=== PATIENT | male | born 1955 | race Caucasian/White ===

== ENCOUNTER 2018-02-12 13:33 | Emergency (ER) | payer BC, SELFPAY ==
--- NOTE | 2018-02-12 13:33 | ED.SEIZURE ---
HPI - Seizure <Kasandra Khalil PA-C - Last Filed: 02/12/18 22:34> General Chief Complaint: Seizure Stated Complaint: Seizure Time Seen by Provider: 02/12/18 13:41 Source: patient and EMS Mode of arrival: EMS Limitations: no limitations History of Present Illness HPI Narrative: This 63-year-old male states he was feeling fine all day. He went over to a friend's house to have some beer and try THC for the 1st time for his chronic neck and neuropathy pain. He states that he had just open his 2nd beer when his next memory was his friend tapping him on the knee trying to awaken him, and the EMS crew arriving. He states that his friend described him shaking, and he had urinary incontinence. He states after he was awakened he did not have any confusion other than not knowing what had happened. Paramedics describe seen some generalized shaking activity, state GCS was 15 on arrival and fast was normal. Patient states that he has not had any weakness, difficulty with speech or swallowing today. He denies any chest pain, palpitations, or dyspnea. He states that he has some ongoing pain and weakness on the left side due to his cervical spine stenosis for which she is awaiting surgery, but that is overall unchanged. He states that he has not had any recent illness, fever, cough or cold symptoms. He denies any abdominal pain or vomiting. He has no history of seizures. Paramedics note that his blood pressure was 96/53 with a heart rate of 85 and regular and route here so they started an IV. Related Data Home Medications Medication Instructions Recorded Confirmed atorvastatin [Lipitor] 80 mg PO DAILY 02/12/18 02/12/18 dapagliflozin-metformin [Xigduo XR] 1 tab PO DAILY 02/12/18 02/12/18 levothyroxine 50 mcg PO DAILY 02/12/18 02/12/18 losartan-hydrochlorothiazide 1 tab PO DAILY 02/12/18 02/12/18 metoprolol succinate 50 mg PO DAILY 02/12/18 02/12/18 sitagliptin [Januvia] 100 mg PO DAILY 02/12/18 02/12/18 Allergies Allergy/AdvReac Type Severity Reaction Status Date / Time breathing treatment AdvReac Unresponsiv Uncoded 02/12/18 14:12 e Review of Systems <Kasandra Khalil PA-C - Last Filed: 02/12/18 22:34> Review of Systems All systems reviewed & are unremarkable except as noted in HPI and below Exam <Kasandra Khalil PA-C - Last Filed: 02/12/18 22:34> Narrative Exam Narrative: GENERAL APPEARANCE: Patient sitting comfortably, in no distress. HEENT: PERRL, EOMI, normal TMs and oropharynx NECK: Supple, no TTP, no masses LUNGS: Clear to auscultation bilaterally. HEART: Rate and rhythm regular without murmur, normal S1 and S2, no S3 or S4. ABDOMEN: Soft, NT, ND, + BS x 4 quadrants NEUROLOGIC: Alert and oriented, normal speech, and coordination. CN III-XII grossly intact MUSCULOSKELETAL: Full Csp AROM without tenderness. Strength intact against resistance in UEs and LEs, able to maintain shoulder and hip flexion without drift throughout Initial Vital Signs Initial Vital Signs: Vital Signs Temperature 98.2 F 02/12/18 13:40 Pulse Rate 79 02/12/18 13:40 Respiratory Rate 18 02/12/18 13:40 Blood Pressure 123/81 H 02/12/18 13:40 Pulse Oximetry 97 02/12/18 13:40 <Prosper Garcia MD - Last Filed: 03/15/18 06:50> Initial Vital Signs Initial Vital Signs: Vital Signs Temperature 98.2 F 02/12/18 13:40 Pulse Rate 79 02/12/18 13:40 Respiratory Rate 18 02/12/18 13:40 Blood Pressure 123/81 H 02/12/18 13:40 Pulse Oximetry 97 02/12/18 13:40 Course <Kasandra Khalil PA-C - Last Filed: 02/12/18 22:34> Hospital Course: Reviewed findings with Dr. Pierre who agreed reasonable to d/c patient for outpatient f/u and neurology eval. Patient was agreeable and agrees not to drive. He did have a friend here with him today. Orders Ordered: Discontinued Medications Sodium Chloride (Normal Saline 0.9%) 1,000 mls @ 1,000 mls/hr IV BOLUS ONE Stop: 02/12/18 14:45 Last Infusion: 02/12/18 17:47 Dose: 0 mls/hr Admin: 02/12/18 14:19 Dose: 1,000 mls/hr Vital Signs - 8 hr 02/12/18 16:06 02/12/18 17:43 Pulse Rate 73 84 Respiratory Rate 16 16 Blood Pressure [Left Arm] 120/66 118/89 H Pulse Oximetry 97 100 <Prosper Garcia MD - Last Filed: 03/15/18 06:50> Orders Ordered: Discontinued Medications Sodium Chloride (Normal Saline 0.9%) 1,000 mls @ 1,000 mls/hr IV BOLUS ONE Stop: 02/12/18 14:45 Last Infusion: 02/12/18 17:47 Dose: 0 mls/hr Admin: 02/12/18 14:19 Dose: 1,000 mls/hr Vital Signs - 8 hr 02/12/18 16:06 02/12/18 17:43 Pulse Rate 73 84 Respiratory Rate 16 16 Blood Pressure [Left Arm] 120/66 118/89 H Pulse Oximetry 97 100 MDM - Seizure <Kasandra Khalil PA-C - Last Filed: 02/12/18 22:34> Lab Data Result diagrams: 02/12/18 13:30 02/12/18 13:30 Lab Results 02/12/18 02/12/18 02/12/18 Range/Units 13:30 13:30 13:30 WBC 11.4 H (4.5-11.0) X10^3/uL RBC 5.22 (4.5-5.9) X10^6/uL Hgb 16.5 (13.5-17.5) g/dL Hct 47.8 (41-53) % MCV 91.7 (80-100) fL MCH 31.6 (26-34) PG MCHC 34.5 (30-36) % RDW 14.4 (11.6-14.8) % Plt Count 181 (150-400) X10^3/uL Neut % (Auto) 62.9 (50-75) % Lymph % (Auto) 18.8 L (25-40) % [place] % (Auto) 15.8 H (3-14) % Eos % (Auto) 1.9 L (2-4) % Baso % (Auto) 0.6 (0-2) % Neut # (Auto) 7200 H (8592-4831) /uL PT 11.7 (10.1-12.7) SECONDS INR 1.1 (0.9-1.3) D-Dimer 313 H (<230) ng/mL Sodium 139 (137-145) mmol/L Potassium 3.7 (3.4-5.1) mmol/L Chloride 97 L (98-107) mmol/L Carbon Dioxide 28 (22-32) mmol/L BUN 16 (9-20) mg/dL Creatinine 0.90 (0.66-1.25) mg/dL Estimated GFR > 60.0 (>60) mL/min BUN/Creatinine Ratio 17.8 (6-22) Glucose 173 H (80-110) mg/dL Calcium 9.4 (8.4-10.2) mg/dL Magnesium 1.6 (1.6-2.3) mg/dL Total Bilirubin 1.0 (0.2-1.3) mg/dL AST 42 (17-59) IU/L ALT 54 (21-72) IU/L Alkaline Phosphatase 70 (38-126) U/L Total Creatine Kinase 119 (55-170) U/L CK-MB (CK-2) 1.99 (<2.37) ng/mL CK-MB (CK-2) Rel Index 1.7 (1.5-5.0) % Troponin I < 0.012 (0.01-0.034) ng/mL Total Protein 8.0 (6.3-8.2) g/dL Albumin 4.3 (3.5-5.0) g/dL Globulin 3.7 (1.7-4.1) g/dL Albumin/Globulin Ratio 1.2 (1.0-2.8) Prolactin (3.7-17.9) ng/mL Urine Color Urine Appearance Urine pH (4.5-8.0) Ur Specific [place] (1.000-1.035) Urine Protein (Negative) Urine Glucose (UA) (Normal) g/dL Urine Ketones (NEGATIVE) Urine Occult Blood (Negative) Urine Nitrate (Negative) Urine Bilirubin (NEGATIVE) Urine Urobilinogen (0.2) E.U./dL Ur Leukocyte Esterase (NEGATIVE) Urine RBC (0-5/HPF) Urine WBC (0-5/HPF) Urine Bacteria (None) Ur Culture Indicated? Micro UA Comment Urine Opiates Screen (Negative) Ur Oxycodone Screen (Negative) Urine Methadone Screen (Negative) Ur Barbiturates Screen (Negative) U Tricyclic Antidepress (Negative) Ur Phencyclidine Scrn (Negative) Ur Amphetamines Screen (Negative) U Methamphetamines Scrn (Negative) Ur MDMA Scrn (Ecstasy) (Negative) U Benzodiazepines Scrn (Negative) Urine Cocaine Screen (Negative) U Marijuana (THC) Screen (Negative) Ethyl Alcohol < 10 mg/dL 02/12/18 02/12/18 02/12/18 Range/Units 13:30 16:42 16:42 WBC (4.5-11.0) X10^3/uL RBC (4.5-5.9) X10^6/uL Hgb (13.5-17.5) g/dL Hct (41-53) % MCV (80-100) fL MCH (26-34) PG MCHC (30-36) % RDW (11.6-14.8) % Plt Count (150-400) X10^3/uL Neut % (Auto) (50-75) % Lymph % (Auto) (25-40) % [place] % (Auto) (3-14) % Eos % (Auto) (2-4) % Baso % (Auto) (0-2) % Neut # (Auto) (4242-4609) /uL PT (10.1-12.7) SECONDS INR (0.9-1.3) D-Dimer (<230) ng/mL Sodium (137-145) mmol/L Potassium (3.4-5.1) mmol/L Chloride (98-107) mmol/L Carbon Dioxide (22-32) mmol/L BUN (9-20) mg/dL Creatinine (0.66-1.25) mg/dL Estimated GFR (>60) mL/min BUN/Creatinine Ratio (6-22) Glucose (80-110) mg/dL Calcium (8.4-10.2) mg/dL Magnesium (1.6-2.3) mg/dL Total Bilirubin (0.2-1.3) mg/dL AST (17-59) IU/L ALT (21-72) IU/L Alkaline Phosphatase (38-126) U/L Total Creatine Kinase (55-170) U/L CK-MB (CK-2) (<2.37) ng/mL CK-MB (CK-2) Rel Index (1.5-5.0) % Troponin I (0.01-0.034) ng/mL Total Protein (6.3-8.2) g/dL Albumin (3.5-5.0) g/dL Globulin (1.7-4.1) g/dL Albumin/Globulin Ratio (1.0-2.8) Prolactin 88.7 H (3.7-17.9) ng/mL Urine Color Yellow Urine Appearance Clear Urine pH 5.0 (4.5-8.0) Ur Specific [place] 1.010 (1.000-1.035) Urine Protein Negative (Negative) Urine Glucose (UA) 2+ (Normal) g/dL Urine Ketones Negative (NEGATIVE) Urine Occult Blood Negative (Negative) Urine Nitrate Negative (Negative) Urine Bilirubin Negative (NEGATIVE) Urine Urobilinogen 0.2 (0.2) E.U./dL Ur Leukocyte Esterase Negative (NEGATIVE) Urine RBC 1-5/hpf (0-5/HPF) Urine WBC None seen (0-5/HPF) Urine Bacteria None seen (None) Ur Culture Indicated? Not Reportable Micro UA Comment Not Reportable Urine Opiates Screen Negative (Negative) Ur Oxycodone Screen Negative (Negative) Urine Methadone Screen Negative (Negative) Ur Barbiturates Screen Negative (Negative) U Tricyclic Antidepress Negative (Negative) Ur Phencyclidine Scrn Negative (Negative) Ur Amphetamines Screen Negative (Negative) U Methamphetamines Scrn Negative (Negative) Ur MDMA Scrn (Ecstasy) Negative (Negative) U Benzodiazepines Scrn Negative (Negative) Urine Cocaine Screen Negative (Negative) U Marijuana (THC) Screen Positive H (Negative) Ethyl Alcohol mg/dL Imaging Data Chest x-ray: Radiologist's impression: [address] [address] XRay Report Signed Patient: Jesse Jett MR#: [id number] : 1955 Acct:[id number] Age/Sex: 63 / M Date of Service: 02/12/18 Loc: ED Accession Number: [id number] Procedure: XR chest 1V Ordering Provider: Kasandra Khalil P.A-C PROCEDURE: XR CHEST 1V INDICATIONS: 63 year-old male with syncope. TECHNIQUE: One view of the chest was acquired. COMPARISON: None. FINDINGS: Surgical changes and devices: Patient is status post median sternotomy. Lungs and pleura: No pleural effusions or pneumothorax. Lungs are clear. Mediastinum: Mediastinal contours appear normal. Heart size is normal. There is aortic atherosclerosis. Bones and chest wall: No suspicious bony lesions. Overlying soft tissues appear unremarkable. IMPRESSION: No acute cardiopulmonary disease. Dictated by: Jose A Manriquez M.D. on 02/12/2018 at 14:04 Approved by: Jose A Manriquez M.D. on 02/12/2018 at 14:05 CT scan - head: Radiologist's impression: View Report History Print [address] [address] [address] Scan Report Signed Patient: Jesse Jett MR#: [id number] : 1955 Acct:[id number] Age/Sex: 63 / M Date of Service: 02/12/18 Loc: ED Accession Number: [id number] Procedure: CT head/brain wo con Ordering Provider: Kasandra Khalil P.A-C PROCEDURE: CT HEAD/BRAIN WO CON INDICATIONS: syncope/seizure TECHNIQUE: Noncontrast 4.5 mm thick angled axial sections acquired from the foramen magnum to the vertex, with coronal and sagittal reformats. For radiation dose reduction, the following was used: automated exposure control, adjustment of mA and/or kV according to patient size. COMPARISON: [facility], CR, XR CHEST 1V, 02/12/2018, 13:33. FINDINGS: Image quality: Excellent. CSF spaces: Basal cisterns are patent. No extra-axial fluid collections. Ventricles are mildly prominent. There is corresponding parenchymal volume loss. Brain: No midline shift. No intracranial masses or hemorrhage. [place]-white matter interface is normal. Areas of low-attenuation are seen within the periventricular and deep white matter of the supratentorial brain (right greater than left). Skull and face: Calvarium and visualized facial bones are intact, without suspicious lesions. Sinuses: Visualized minimal mucosal thickening is noted involving the left inferior maxillary sinus. Otherwise, the imaged paranasal sinuses and included mastoid air cells are clear. IMPRESSION: 1. No acute intracranial hemorrhage or ischemia. 2. Moderate parenchymal volume loss and chronic small vessel ischemic changes. Dictated by: Eugene Frost M.D. on 02/12/2018 at 13:10 Approved by: Eugene Frost M.D. on 02/12/2018 at 13:13 CT scan - chest: Radiologist's impression: [address] [address] [address] Scan Report Signed Patient: Jesse Jett MR#: [id number] : 1955 Acct:[id number] Age/Sex: 63 / M Date of Service: 02/12/18 Loc: ED Accession Number: [id number] Procedure: CT angio chest PE protocol Ordering Provider: Kasandra Khalil P.A-C PROCEDURE: CT ANGIO CHEST PE PROTOCOL INDICATIONS: syncope, elevated d dimer TECHNIQUE: After the administration of intravenous contrast, 2 mm thick sections acquired from the pulmonary apices to the posterior costophrenic angles. 3-dimensional maximum intensity projection (MIP) coronal and sagittal reformats were then acquired through the thorax. For radiation dose reduction, the following was used: automated exposure control, adjustment of mA and/or kV according to patient size. COMPARISON: [facility], CR, XR CHEST 1V, 02/12/2018, 13:33. FINDINGS: Image quality: Excellent. Pulmonary arteries: Pulmonary arteries are normal in size, and demonstrate no intraluminal filling defects to suggest central pulmonary embolism. Lungs and pleura: There is mild dependent atelectasis bilaterally. Within the left lower lobe, there is a small bony nodule measuring up to 4 mm on series 5 image 48. No pleural effusions or pneumothorax. Central and peripheral airways are patent. Mediastinum: Postsurgical changes are demonstrated in the mediastinum compatible with prior CABG. Heart size is normal, without pericardial effusion. No mediastinal or hilar adenopathy. Thoracic aorta is normal in caliber and enhancement. Esophagus is normal in caliber, with a small hiatal hernia. Bones and chest wall: No suspicious bony lesions. Ribs and thoracic spine appear intact throughout. Thyroid gland is heterogeneous in appearance with suggestion of a small right nodule. No axillary or supraclavicular adenopathy. Abdomen: Visualized upper abdominal solid organs appear normal in the early arterial phase of enhancement. IMPRESSION: 1. No evidence of pulmonary embolism. 2. Small 4 mm left lower lobe pulmonary nodule. If patient is at high risk for malignancy, a followup CT may be performed in 12 months to demonstrate stability. 3. Heterogeneous appearance of the thyroid. Further evaluation may be obtained with ultrasound if clinically indicated. Dictated by: Woodrow Castro M.D. on 02/12/2018 at 14:50 Approved by: Woodrow Castro M.D. on 02/12/2018 at 14:55 ECG Data Attestation: I personally reviewed and interpreted this ECG as follows: (NSR with rate 76, normal axis, single PVC) Prior ECG tracings: not available for review <Prosper Garcia MD - Last Filed: 03/15/18 06:50> Lab Data Lab Results 02/12/18 02/12/18 02/12/18 Range/Units 13:30 13:30 13:30 WBC 11.4 H (4.5-11.0) X10^3/uL RBC 5.22 (4.5-5.9) X10^6/uL Hgb 16.5 (13.5-17.5) g/dL Hct 47.8 (41-53) % MCV 91.7 (80-100) fL MCH 31.6 (26-34) PG MCHC 34.5 (30-36) % RDW 14.4 (11.6-14.8) % Plt Count 181 (150-400) X10^3/uL Neut % (Auto) 62.9 (50-75) % Lymph % (Auto) 18.8 L (25-40) % [place] % (Auto) 15.8 H (3-14) % Eos % (Auto) 1.9 L (2-4) % Baso % (Auto) 0.6 (0-2) % Neut # (Auto) 7200 H (8020-9728) /uL PT 11.7 (10.1-12.7) SECONDS INR 1.1 (0.9-1.3) D-Dimer 313 H (<230) ng/mL Sodium 139 (137-145) mmol/L Potassium 3.7 (3.4-5.1) mmol/L Chloride 97 L (98-107) mmol/L Carbon Dioxide 28 (22-32) mmol/L BUN 16 (9-20) mg/dL Creatinine 0.90 (0.66-1.25) mg/dL Estimated GFR > 60.0 (>60) mL/min BUN/Creatinine Ratio 17.8 (6-22) Glucose 173 H (80-110) mg/dL Calcium 9.4 (8.4-10.2) mg/dL Magnesium 1.6 (1.6-2.3) mg/dL Total Bilirubin 1.0 (0.2-1.3) mg/dL AST 42 (17-59) IU/L ALT 54 (21-72) IU/L Alkaline Phosphatase 70 (38-126) U/L Total Creatine Kinase 119 (55-170) U/L CK-MB (CK-2) 1.99 (<2.37) ng/mL CK-MB (CK-2) Rel Index 1.7 (1.5-5.0) % Troponin I < 0.012 (0.01-0.034) ng/mL Total Protein 8.0 (6.3-8.2) g/dL Albumin 4.3 (3.5-5.0) g/dL Globulin 3.7 (1.7-4.1) g/dL Albumin/Globulin Ratio 1.2 (1.0-2.8) Prolactin (3.7-17.9) ng/mL Urine Color Urine Appearance Urine pH (4.5-8.0) Ur Specific [place] (1.000-1.035) Urine Protein (Negative) Urine Glucose (UA) (Normal) g/dL Urine Ketones (NEGATIVE) Urine Occult Blood (Negative) Urine Nitrate (Negative) Urine Bilirubin (NEGATIVE) Urine Urobilinogen (0.2) E.U./dL Ur Leukocyte Esterase (NEGATIVE) Urine RBC (0-5/HPF) Urine WBC (0-5/HPF) Urine Bacteria (None) Ur Culture Indicated? Micro UA Comment Urine Opiates Screen (Negative) Ur Oxycodone Screen (Negative) Urine Methadone Screen (Negative) Ur Barbiturates Screen (Negative) U Tricyclic Antidepress (Negative) Ur Phencyclidine Scrn (Negative) Ur Amphetamines Screen (Negative) U Methamphetamines Scrn (Negative) Ur MDMA Scrn (Ecstasy) (Negative) U Benzodiazepines Scrn (Negative) Urine Cocaine Screen (Negative) U Marijuana (THC) Screen (Negative) Ethyl Alcohol < 10 mg/dL 06/04/18 06/04/18 06/04/18 Range/Units 13:30 16:42 16:42 WBC (4.5-11.0) X10^3/uL RBC (4.5-5.9) X10^6/uL Hgb (13.5-17.5) g/dL Hct (41-53) % MCV (80-100) fL MCH (26-34) PG MCHC (30-36) % RDW (11.6-14.8) % Plt Count (150-400) X10^3/uL Neut % (Auto) (50-75) % Lymph % (Auto) (25-40) % [place] % (Auto) (3-14) % Eos % (Auto) (2-4) % Baso % (Auto) (0-2) % Neut # (Auto) (0408-7914) /uL PT (10.1-12.7) SECONDS INR (0.9-1.3) D-Dimer (<230) ng/mL Sodium (137-145) mmol/L Potassium (3.4-5.1) mmol/L Chloride (98-107) mmol/L Carbon Dioxide (22-32) mmol/L BUN (9-20) mg/dL Creatinine (0.66-1.25) mg/dL Estimated GFR (>60) mL/min BUN/Creatinine Ratio (6-22) Glucose (80-110) mg/dL Calcium (8.4-10.2) mg/dL Magnesium (1.6-2.3) mg/dL Total Bilirubin (0.2-1.3) mg/dL AST (17-59) IU/L ALT (21-72) IU/L Alkaline Phosphatase (38-126) U/L Total Creatine Kinase (55-170) U/L CK-MB (CK-2) (<2.37) ng/mL CK-MB (CK-2) Rel Index (1.5-5.0) % Troponin I (0.01-0.034) ng/mL Total Protein (6.3-8.2) g/dL Albumin (3.5-5.0) g/dL Globulin (1.7-4.1) g/dL Albumin/Globulin Ratio (1.0-2.8) Prolactin 88.7 H (3.7-17.9) ng/mL Urine Color Yellow Urine Appearance Clear Urine pH 5.0 (4.5-8.0) Ur Specific [place] 1.010 (1.000-1.035) Urine Protein Negative (Negative) Urine Glucose (UA) 2+ (Normal) g/dL Urine Ketones Negative (NEGATIVE) Urine Occult Blood Negative (Negative) Urine Nitrate Negative (Negative) Urine Bilirubin Negative (NEGATIVE) Urine Urobilinogen 0.2 (0.2) E.U./dL Ur Leukocyte Esterase Negative (NEGATIVE) Urine RBC 1-5/hpf (0-5/HPF) Urine WBC None seen (0-5/HPF) Urine Bacteria None seen (None) Ur Culture Indicated? Not Reportable Micro UA Comment Not Reportable Urine Opiates Screen Negative (Negative) Ur Oxycodone Screen Negative (Negative) Urine Methadone Screen Negative (Negative) Ur Barbiturates Screen Negative (Negative) U Tricyclic Antidepress Negative (Negative) Ur Phencyclidine Scrn Negative (Negative) Ur Amphetamines Screen Negative (Negative) U Methamphetamines Scrn Negative (Negative) Ur MDMA Scrn (Ecstasy) Negative (Negative) U Benzodiazepines Scrn Negative (Negative) Urine Cocaine Screen Negative (Negative) U Marijuana (THC) Screen Positive H (Negative) Ethyl Alcohol mg/dL Discharge Plan Departure Patient Disposition: Home, Self-Care Clinical Impression: First time seizure Discharge Date/Time: 02/12/18 17:50 Interventions: ED Discharge Assessment Last Done: 02/12/18 17:49 Instructions: DI for Seizure Disorder -- Adult Activity Restrictions/Additional Instructions: It appears most likely today that you had a seizure. Your test did not find evidence of any other new problem such as a stroke or heart attack. There was not a significant amount of alcohol or other drugs in your system. You should see your PCP in the next few days for a follow-up and a referral to a neurologist to have further testing as we talked about. You should not drive until the neurologist says it is safe for you. You should return to the closest emergency room if you have any new symptoms or if any recurrent seizure activity Prescriptions: No Action atorvastatin [Lipitor] 80 mg Tablet 80 mg PO DAILY RF: 0 metoprolol succinate 50 mg Tablet Extended Release 24 Hr 50 mg PO DAILY RF: 0 levothyroxine 50 mcg Tablet 50 mcg PO DAILY RF: 0 losartan-hydrochlorothiazide 50-12.5 mg Tablet 1 tab PO DAILY RF: 0 sitagliptin [Januvia] 100 mg Tablet 100 mg PO DAILY RF: 0 dapagliflozin-metformin [Xigduo XR] 5-1,000 mg Tablet, Ir - Er, Biphasic 24hr 1 tab PO DAILY RF: 0 Referrals: Silverio Romano MD [Non-Staff] - <Prosper Garcia MD - Last Filed: 03/15/18 06:50> Cosign ED Attending Cosignature Attestation: The PA/DIRECTOR OF PRODUCT MANAGEMENT functioned independently for the care of this pt, I was available, but not asked to participate in care. I am unable to determine appropriateness of management without personally examining the pt.
[2018-02-12 13:40] VITALS: BP 123/81; PULSE 79; RESP 18; TEMP 36.8; O2SAT 97
--- NOTE | 2018-02-12 13:47 | DI.RAD.S_ITS ---
PROCEDURE: XR CHEST 1V INDICATIONS: 63 year-old male with syncope. TECHNIQUE: One view of the chest was acquired. COMPARISON: None. FINDINGS: Surgical changes and devices: Patient is status post median sternotomy. Lungs and pleura: No pleural effusions or pneumothorax. Lungs are clear. Mediastinum: Mediastinal contours appear normal. Heart size is normal. There is aortic atherosclerosis. Bones and chest wall: No suspicious bony lesions. Overlying soft tissues appear unremarkable. IMPRESSION: No acute cardiopulmonary disease. Dictated by: Jose A Manriquez M.D. on 02/12/2018 at 14:04 Approved by: Jose A Manriquez M.D. on 02/12/2018 at 14:05
--- NOTE | 2018-02-12 13:51 | DI.CT.S_ITS ---
PROCEDURE: CT HEAD/BRAIN WO CON INDICATIONS: syncope/seizure TECHNIQUE: Noncontrast 4.5 mm thick angled axial sections acquired from the foramen magnum to the vertex, with coronal and sagittal reformats. For radiation dose reduction, the following was used: automated exposure control, adjustment of mA and/or kV according to patient size. COMPARISON: [facility], CR, XR CHEST 1V, 02/12/2018, 13:33. FINDINGS: Image quality: Excellent. CSF spaces: Basal cisterns are patent. No extra-axial fluid collections. Ventricles are mildly prominent. There is corresponding parenchymal volume loss. Brain: No midline shift. No intracranial masses or hemorrhage. [place]-white matter interface is normal. Areas of low-attenuation are seen within the periventricular and deep white matter of the supratentorial brain (right greater than left). Skull and face: Calvarium and visualized facial bones are intact, without suspicious lesions. Sinuses: Visualized minimal mucosal thickening is noted involving the left inferior maxillary sinus. Otherwise, the imaged paranasal sinuses and included mastoid air cells are clear. IMPRESSION: 1. No acute intracranial hemorrhage or ischemia. 2. Moderate parenchymal volume loss and chronic small vessel ischemic changes. Dictated by: Eugene Frost M.D. on 02/12/2018 at 13:10 Approved by: Eugene Frost M.D. on 02/12/2018 at 13:13
--- NOTE | 2018-02-12 13:54 | ED_ITS ---
HPI - Seizure <Kasandra Khalil PA-C - Last Filed: 02/12/18 22:34> General Chief Complaint: Seizure Stated Complaint: Seizure Time Seen by Provider: 02/12/18 13:41 Source: patient and EMS Mode of arrival: EMS Limitations: no limitations History of Present Illness HPI Narrative: This 63-year-old male states he was feeling fine all day. He went over to a friend's house to have some beer and try THC for the 1st time for his chronic neck and neuropathy pain. He states that he had just open his 2nd beer when his next memory was his friend tapping him on the knee trying to awaken him, and the EMS crew arriving. He states that his friend described him shaking, and he had urinary incontinence. He states after he was awakened he did not have any confusion other than not knowing what had happened. Paramedics describe seen some generalized shaking activity, state GCS was 15 on arrival and fast was normal. Patient states that he has not had any weakness, difficulty with speech or swallowing today. He denies any chest pain, palpitations, or dyspnea. He states that he has some ongoing pain and weakness on the left side due to his cervical spine stenosis for which she is awaiting surgery, but that is overall unchanged. He states that he has not had any recent illness, fever, cough or cold symptoms. He denies any abdominal pain or vomiting. He has no history of seizures. Paramedics note that his blood pressure was 96/53 with a heart rate of 85 and regular and route here so they started an IV. Related Data Home Medications Medication Instructions Recorded Confirmed atorvastatin [Lipitor] 80 mg PO DAILY 02/12/18 02/12/18 dapagliflozin-metformin [Xigduo XR] 1 tab PO DAILY 02/12/18 02/12/18 levothyroxine 50 mcg PO DAILY 02/12/18 02/12/18 losartan-hydrochlorothiazide 1 tab PO DAILY 02/12/18 02/12/18 metoprolol succinate 50 mg PO DAILY 02/12/18 02/12/18 sitagliptin [Januvia] 100 mg PO DAILY 02/12/18 02/12/18 Allergies Allergy/AdvReac Type Severity Reaction Status Date / Time breathing treatment AdvReac Unresponsiv Uncoded 02/12/18 14:12 e Review of Systems <Kasandra Khalil PA-C - Last Filed: 02/12/18 22:34> Review of Systems All systems reviewed & are unremarkable except as noted in HPI and below Exam <Kasandra Khalil PA-C - Last Filed: 02/12/18 22:34> Narrative Exam Narrative: GENERAL APPEARANCE: Patient sitting comfortably, in no distress. HEENT: PERRL, EOMI, normal TMs and oropharynx NECK: Supple, no TTP, no masses LUNGS: Clear to auscultation bilaterally. HEART: Rate and rhythm regular without murmur, normal S1 and S2, no S3 or S4. ABDOMEN: Soft, NT, ND, + BS x 4 quadrants NEUROLOGIC: Alert and oriented, normal speech, and coordination. CN III-XII grossly intact MUSCULOSKELETAL: Full Csp AROM without tenderness. Strength intact against resistance in UEs and LEs, able to maintain shoulder and hip flexion without drift throughout Initial Vital Signs Initial Vital Signs: Vital Signs Temperature 98.2 F 02/12/18 13:40 Pulse Rate 79 02/12/18 13:40 Respiratory Rate 18 02/12/18 13:40 Blood Pressure 123/81 H 02/12/18 13:40 Pulse Oximetry 97 02/12/18 13:40 <Prosper Garcia MD - Last Filed: 03/15/18 06:50> Initial Vital Signs Initial Vital Signs: Vital Signs Temperature 98.2 F 02/12/18 13:40 Pulse Rate 79 02/12/18 13:40 Respiratory Rate 18 02/12/18 13:40 Blood Pressure 123/81 H 02/12/18 13:40 Pulse Oximetry 97 02/12/18 13:40 Course <Kasandra Khalil PA-C - Last Filed: 02/12/18 22:34> Hospital Course: Reviewed findings with Dr. Pierre who agreed reasonable to d/c patient for outpatient f/u and neurology eval. Patient was agreeable and agrees not to drive. He did have a friend here with him today. Orders Ordered: Discontinued Medications Sodium Chloride (Normal Saline 0.9%) 1,000 mls @ 1,000 mls/hr IV BOLUS ONE Stop: 02/12/18 14:45 Last Infusion: 02/12/18 17:47 Dose: 0 mls/hr Admin: 02/12/18 14:19 Dose: 1,000 mls/hr Vital Signs - 8 hr 02/12/18 16:06 02/12/18 17:43 Pulse Rate 73 84 Respiratory Rate 16 16 Blood Pressure [Left Arm] 120/66 118/89 H Pulse Oximetry 97 100 <Prosper Garcia MD - Last Filed: 03/15/18 06:50> Orders Ordered: Discontinued Medications Sodium Chloride (Normal Saline 0.9%) 1,000 mls @ 1,000 mls/hr IV BOLUS ONE Stop: 02/12/18 14:45 Last Infusion: 02/12/18 17:47 Dose: 0 mls/hr Admin: 02/12/18 14:19 Dose: 1,000 mls/hr Vital Signs - 8 hr 02/12/18 16:06 02/12/18 17:43 Pulse Rate 73 84 Respiratory Rate 16 16 Blood Pressure [Left Arm] 120/66 118/89 H Pulse Oximetry 97 100 MDM - Seizure <Kasandra Khalil PA-C - Last Filed: 02/12/18 22:34> Lab Data Result diagrams: 02/12/18 13:30 02/12/18 13:30 Lab Results 02/12/18 02/12/18 02/12/18 Range/Units 13:30 13:30 13:30 WBC 11.4 H (4.5-11.0) X10^3/uL RBC 5.22 (4.5-5.9) X10^6/uL Hgb 16.5 (13.5-17.5) g/dL Hct 47.8 (41-53) % MCV 91.7 (80-100) fL MCH 31.6 (26-34) PG MCHC 34.5 (30-36) % RDW 14.4 (11.6-14.8) % Plt Count 181 (150-400) X10^3/uL Neut % (Auto) 62.9 (50-75) % Lymph % (Auto) 18.8 L (25-40) % [place] % (Auto) 15.8 H (3-14) % Eos % (Auto) 1.9 L (2-4) % Baso % (Auto) 0.6 (0-2) % Neut # (Auto) 7200 H (8900-4912) /uL PT 11.7 (10.1-12.7) SECONDS INR 1.1 (0.9-1.3) D-Dimer 313 H (<230) ng/mL Sodium 139 (137-145) mmol/L Potassium 3.7 (3.4-5.1) mmol/L Chloride 97 L (98-107) mmol/L Carbon Dioxide 28 (22-32) mmol/L BUN 16 (9-20) mg/dL Creatinine 0.90 (0.66-1.25) mg/dL Estimated GFR > 60.0 (>60) mL/min BUN/Creatinine Ratio 17.8 (6-22) Glucose 173 H (80-110) mg/dL Calcium 9.4 (8.4-10.2) mg/dL Magnesium 1.6 (1.6-2.3) mg/dL Total Bilirubin 1.0 (0.2-1.3) mg/dL AST 42 (17-59) IU/L ALT 54 (21-72) IU/L Alkaline Phosphatase 70 (38-126) U/L Total Creatine Kinase 119 (55-170) U/L CK-MB (CK-2) 1.99 (<2.37) ng/mL CK-MB (CK-2) Rel Index 1.7 (1.5-5.0) % Troponin I < 0.012 (0.01-0.034) ng/mL Total Protein 8.0 (6.3-8.2) g/dL Albumin 4.3 (3.5-5.0) g/dL Globulin 3.7 (1.7-4.1) g/dL Albumin/Globulin Ratio 1.2 (1.0-2.8) Prolactin (3.7-17.9) ng/mL Urine Color Urine Appearance Urine pH (4.5-8.0) Ur Specific [place] (1.000-1.035) Urine Protein (Negative) Urine Glucose (UA) (Normal) g/dL Urine Ketones (NEGATIVE) Urine Occult Blood (Negative) Urine Nitrate (Negative) Urine Bilirubin (NEGATIVE) Urine Urobilinogen (0.2) E.U./dL Ur Leukocyte Esterase (NEGATIVE) Urine RBC (0-5/HPF) Urine WBC (0-5/HPF) Urine Bacteria (None) Ur Culture Indicated? Micro UA Comment Urine Opiates Screen (Negative) Ur Oxycodone Screen (Negative) Urine Methadone Screen (Negative) Ur Barbiturates Screen (Negative) U Tricyclic Antidepress (Negative) Ur Phencyclidine Scrn (Negative) Ur Amphetamines Screen (Negative) U Methamphetamines Scrn (Negative) Ur MDMA Scrn (Ecstasy) (Negative) U Benzodiazepines Scrn (Negative) Urine Cocaine Screen (Negative) U Marijuana (THC) Screen (Negative) Ethyl Alcohol < 10 mg/dL 02/12/18 02/12/18 02/12/18 Range/Units 13:30 16:42 16:42 WBC (4.5-11.0) X10^3/uL RBC (4.5-5.9) X10^6/uL Hgb (13.5-17.5) g/dL Hct (41-53) % MCV (80-100) fL MCH (26-34) PG MCHC (30-36) % RDW (11.6-14.8) % Plt Count (150-400) X10^3/uL Neut % (Auto) (50-75) % Lymph % (Auto) (25-40) % [place] % (Auto) (3-14) % Eos % (Auto) (2-4) % Baso % (Auto) (0-2) % Neut # (Auto) (9107-4009) /uL PT (10.1-12.7) SECONDS INR (0.9-1.3) D-Dimer (<230) ng/mL Sodium (137-145) mmol/L Potassium (3.4-5.1) mmol/L Chloride (98-107) mmol/L Carbon Dioxide (22-32) mmol/L BUN (9-20) mg/dL Creatinine (0.66-1.25) mg/dL Estimated GFR (>60) mL/min BUN/Creatinine Ratio (6-22) Glucose (80-110) mg/dL Calcium (8.4-10.2) mg/dL Magnesium (1.6-2.3) mg/dL Total Bilirubin (0.2-1.3) mg/dL AST (17-59) IU/L ALT (21-72) IU/L Alkaline Phosphatase (38-126) U/L Total Creatine Kinase (55-170) U/L CK-MB (CK-2) (<2.37) ng/mL CK-MB (CK-2) Rel Index (1.5-5.0) % Troponin I (0.01-0.034) ng/mL Total Protein (6.3-8.2) g/dL Albumin (3.5-5.0) g/dL Globulin (1.7-4.1) g/dL Albumin/Globulin Ratio (1.0-2.8) Prolactin 88.7 H (3.7-17.9) ng/mL Urine Color Yellow Urine Appearance Clear Urine pH 5.0 (4.5-8.0) Ur Specific [place] 1.010 (1.000-1.035) Urine Protein Negative (Negative) Urine Glucose (UA) 2+ (Normal) g/dL Urine Ketones Negative (NEGATIVE) Urine Occult Blood Negative (Negative) Urine Nitrate Negative (Negative) Urine Bilirubin Negative (NEGATIVE) Urine Urobilinogen 0.2 (0.2) E.U./dL Ur Leukocyte Esterase Negative (NEGATIVE) Urine RBC 1-5/hpf (0-5/HPF) Urine WBC None seen (0-5/HPF) Urine Bacteria None seen (None) Ur Culture Indicated? Not Reportable Micro UA Comment Not Reportable Urine Opiates Screen Negative (Negative) Ur Oxycodone Screen Negative (Negative) Urine Methadone Screen Negative (Negative) Ur Barbiturates Screen Negative (Negative) U Tricyclic Antidepress Negative (Negative) Ur Phencyclidine Scrn Negative (Negative) Ur Amphetamines Screen Negative (Negative) U Methamphetamines Scrn Negative (Negative) Ur MDMA Scrn (Ecstasy) Negative (Negative) U Benzodiazepines Scrn Negative (Negative) Urine Cocaine Screen Negative (Negative) U Marijuana (THC) Screen Positive H (Negative) Ethyl Alcohol mg/dL Imaging Data Chest x-ray: Radiologist's impression: [address] [address] XRay Report Signed Patient: Jesse Jett MR#: [id number] : 1955 Acct:[id number] Age/Sex: 63 / M Date of Service: 02/12/18 Loc: ED Accession Number: [id number] Procedure: XR chest 1V Ordering Provider: Kasandra Khalil P.A-C PROCEDURE: XR CHEST 1V INDICATIONS: 63 year-old male with syncope. TECHNIQUE: One view of the chest was acquired. COMPARISON: None. FINDINGS: Surgical changes and devices: Patient is status post median sternotomy. Lungs and pleura: No pleural effusions or pneumothorax. Lungs are clear. Mediastinum: Mediastinal contours appear normal. Heart size is normal. There is aortic atherosclerosis. Bones and chest wall: No suspicious bony lesions. Overlying soft tissues appear unremarkable. IMPRESSION: No acute cardiopulmonary disease. Dictated by: Jose A Manriquez M.D. on 02/12/2018 at 14:04 Approved by: Jose A Manriquez M.D. on 02/12/2018 at 14:05 CT scan - head: Radiologist's impression: View Report History Print [address] [address] [address] Scan Report Signed Patient: Jesse Jett MR#: [id number] : 1955 Acct:[id number] Age/Sex: 63 / M Date of Service: 02/12/18 Loc: ED Accession Number: [id number] Procedure: CT head/brain wo con Ordering Provider: Kasandra Khalil P.A-C PROCEDURE: CT HEAD/BRAIN WO CON INDICATIONS: syncope/seizure TECHNIQUE: Noncontrast 4.5 mm thick angled axial sections acquired from the foramen magnum to the vertex, with coronal and sagittal reformats. For radiation dose reduction, the following was used: automated exposure control, adjustment of mA and/or kV according to patient size. COMPARISON: [facility], CR, XR CHEST 1V, 02/12/2018, 13:33. FINDINGS: Image quality: Excellent. CSF spaces: Basal cisterns are patent. No extra-axial fluid collections. Ventricles are mildly prominent. There is corresponding parenchymal volume loss. Brain: No midline shift. No intracranial masses or hemorrhage. Nickerson-white matter interface is normal. Areas of low-attenuation are seen within the periventricular and deep white matter of the supratentorial brain (right greater than left). Skull and face: Calvarium and visualized facial bones are intact, without suspicious lesions. Sinuses: Visualized minimal mucosal thickening is noted involving the left inferior maxillary sinus. Otherwise, the imaged paranasal sinuses and included mastoid air cells are clear. IMPRESSION: 1. No acute intracranial hemorrhage or ischemia. 2. Moderate parenchymal volume loss and chronic small vessel ischemic changes. Dictated by: Eugene Frost M.D. on 02/12/2018 at 13:10 Approved by: Eugene Frost M.D. on 02/12/2018 at 13:13 CT scan - chest: Radiologist's impression: [address] [address] [address] Scan Report Signed Patient: Jesse Jett MR#: [id number] : 1955 Acct:[id number] Age/Sex: 63 / M Date of Service: 02/12/18 Loc: ED Accession Number: [id number] Procedure: CT angio chest PE protocol Ordering Provider: Kasandra Khalil P.A-C PROCEDURE: CT ANGIO CHEST PE PROTOCOL INDICATIONS: syncope, elevated d dimer TECHNIQUE: After the administration of intravenous contrast, 2 mm thick sections acquired from the pulmonary apices to the posterior costophrenic angles. 3-dimensional maximum intensity projection (MIP) coronal and sagittal reformats were then acquired through the thorax. For radiation dose reduction, the following was used: automated exposure control, adjustment of mA and/or kV according to patient size. COMPARISON: [facility], CR, XR CHEST 1V, 02/12/2018, 13:33. FINDINGS: Image quality: Excellent. Pulmonary arteries: Pulmonary arteries are normal in size, and demonstrate no intraluminal filling defects to suggest central pulmonary embolism. Lungs and pleura: There is mild dependent atelectasis bilaterally. Within the left lower lobe, there is a small bony nodule measuring up to 4 mm on series 5 image 48. No pleural effusions or pneumothorax. Central and peripheral airways are patent. Mediastinum: Postsurgical changes are demonstrated in the mediastinum compatible with prior CABG. Heart size is normal, without pericardial effusion. No mediastinal or hilar adenopathy. Thoracic aorta is normal in caliber and enhancement. Esophagus is normal in caliber, with a small hiatal hernia. Bones and chest wall: No suspicious bony lesions. Ribs and thoracic spine appear intact throughout. Thyroid gland is heterogeneous in appearance with suggestion of a small right nodule. No axillary or supraclavicular adenopathy. Abdomen: Visualized upper abdominal solid organs appear normal in the early arterial phase of enhancement. IMPRESSION: 1. No evidence of pulmonary embolism. 2. Small 4 mm left lower lobe pulmonary nodule. If patient is at high risk for malignancy, a followup CT may be performed in 12 months to demonstrate stability. 3. Heterogeneous appearance of the thyroid. Further evaluation may be obtained with ultrasound if clinically indicated. Dictated by: Woodrow Castro M.D. on 02/12/2018 at 14:50 Approved by: Woodrow Castro M.D. on 02/12/2018 at 14:55 ECG Data Attestation: I personally reviewed and interpreted this ECG as follows: (NSR with rate 76, normal axis, single PVC) Prior ECG tracings: not available for review <Prosper Garcia MD - Last Filed: 03/15/18 06:50> Lab Data Lab Results 02/12/18 02/12/18 02/12/18 Range/Units 13:30 13:30 13:30 WBC 11.4 H (4.5-11.0) X10^3/uL RBC 5.22 (4.5-5.9) X10^6/uL Hgb 16.5 (13.5-17.5) g/dL Hct 47.8 (41-53) % MCV 91.7 (80-100) fL MCH 31.6 (26-34) PG MCHC 34.5 (30-36) % RDW 14.4 (11.6-14.8) % Plt Count 181 (150-400) X10^3/uL Neut % (Auto) 62.9 (50-75) % Lymph % (Auto) 18.8 L (25-40) % [place] % (Auto) 15.8 H (3-14) % Eos % (Auto) 1.9 L (2-4) % Baso % (Auto) 0.6 (0-2) % Neut # (Auto) 7200 H (8850-7740) /uL PT 11.7 (10.1-12.7) SECONDS INR 1.1 (0.9-1.3) D-Dimer 313 H (<230) ng/mL Sodium 139 (137-145) mmol/L Potassium 3.7 (3.4-5.1) mmol/L Chloride 97 L (98-107) mmol/L Carbon Dioxide 28 (22-32) mmol/L BUN 16 (9-20) mg/dL Creatinine 0.90 (0.66-1.25) mg/dL Estimated GFR > 60.0 (>60) mL/min BUN/Creatinine Ratio 17.8 (6-22) Glucose 173 H (80-110) mg/dL Calcium 9.4 (8.4-10.2) mg/dL Magnesium 1.6 (1.6-2.3) mg/dL Total Bilirubin 1.0 (0.2-1.3) mg/dL AST 42 (17-59) IU/L ALT 54 (21-72) IU/L Alkaline Phosphatase 70 (38-126) U/L Total Creatine Kinase 119 (55-170) U/L CK-MB (CK-2) 1.99 (<2.37) ng/mL CK-MB (CK-2) Rel Index 1.7 (1.5-5.0) % Troponin I < 0.012 (0.01-0.034) ng/mL Total Protein 8.0 (6.3-8.2) g/dL Albumin 4.3 (3.5-5.0) g/dL Globulin 3.7 (1.7-4.1) g/dL Albumin/Globulin Ratio 1.2 (1.0-2.8) Prolactin (3.7-17.9) ng/mL Urine Color Urine Appearance Urine pH (4.5-8.0) Ur Specific [place] (1.000-1.035) Urine Protein (Negative) Urine Glucose (UA) (Normal) g/dL Urine Ketones (NEGATIVE) Urine Occult Blood (Negative) Urine Nitrate (Negative) Urine Bilirubin (NEGATIVE) Urine Urobilinogen (0.2) E.U./dL Ur Leukocyte Esterase (NEGATIVE) Urine RBC (0-5/HPF) Urine WBC (0-5/HPF) Urine Bacteria (None) Ur Culture Indicated? Micro UA Comment Urine Opiates Screen (Negative) Ur Oxycodone Screen (Negative) Urine Methadone Screen (Negative) Ur Barbiturates Screen (Negative) U Tricyclic Antidepress (Negative) Ur Phencyclidine Scrn (Negative) Ur Amphetamines Screen (Negative) U Methamphetamines Scrn (Negative) Ur MDMA Scrn (Ecstasy) (Negative) U Benzodiazepines Scrn (Negative) Urine Cocaine Screen (Negative) U Marijuana (THC) Screen (Negative) Ethyl Alcohol < 10 mg/dL 06/04/18 06/04/18 06/04/18 Range/Units 13:30 16:42 16:42 WBC (4.5-11.0) X10^3/uL RBC (4.5-5.9) X10^6/uL Hgb (13.5-17.5) g/dL Hct (41-53) % MCV (80-100) fL MCH (26-34) PG MCHC (30-36) % RDW (11.6-14.8) % Plt Count (150-400) X10^3/uL Neut % (Auto) (50-75) % Lymph % (Auto) (25-40) % [place] % (Auto) (3-14) % Eos % (Auto) (2-4) % Baso % (Auto) (0-2) % Neut # (Auto) (5742-2403) /uL PT (10.1-12.7) SECONDS INR (0.9-1.3) D-Dimer (<230) ng/mL Sodium (137-145) mmol/L Potassium (3.4-5.1) mmol/L Chloride (98-107) mmol/L Carbon Dioxide (22-32) mmol/L BUN (9-20) mg/dL Creatinine (0.66-1.25) mg/dL Estimated GFR (>60) mL/min BUN/Creatinine Ratio (6-22) Glucose (80-110) mg/dL Calcium (8.4-10.2) mg/dL Magnesium (1.6-2.3) mg/dL Total Bilirubin (0.2-1.3) mg/dL AST (17-59) IU/L ALT (21-72) IU/L Alkaline Phosphatase (38-126) U/L Total Creatine Kinase (55-170) U/L CK-MB (CK-2) (<2.37) ng/mL CK-MB (CK-2) Rel Index (1.5-5.0) % Troponin I (0.01-0.034) ng/mL Total Protein (6.3-8.2) g/dL Albumin (3.5-5.0) g/dL Globulin (1.7-4.1) g/dL Albumin/Globulin Ratio (1.0-2.8) Prolactin 88.7 H (3.7-17.9) ng/mL Urine Color Yellow Urine Appearance Clear Urine pH 5.0 (4.5-8.0) Ur Specific [place] 1.010 (1.000-1.035) Urine Protein Negative (Negative) Urine Glucose (UA) 2+ (Normal) g/dL Urine Ketones Negative (NEGATIVE) Urine Occult Blood Negative (Negative) Urine Nitrate Negative (Negative) Urine Bilirubin Negative (NEGATIVE) Urine Urobilinogen 0.2 (0.2) E.U./dL Ur Leukocyte Esterase Negative (NEGATIVE) Urine RBC 1-5/hpf (0-5/HPF) Urine WBC None seen (0-5/HPF) Urine Bacteria None seen (None) Ur Culture Indicated? Not Reportable Micro UA Comment Not Reportable Urine Opiates Screen Negative (Negative) Ur Oxycodone Screen Negative (Negative) Urine Methadone Screen Negative (Negative) Ur Barbiturates Screen Negative (Negative) U Tricyclic Antidepress Negative (Negative) Ur Phencyclidine Scrn Negative (Negative) Ur Amphetamines Screen Negative (Negative) U Methamphetamines Scrn Negative (Negative) Ur MDMA Scrn (Ecstasy) Negative (Negative) U Benzodiazepines Scrn Negative (Negative) Urine Cocaine Screen Negative (Negative) U Marijuana (THC) Screen Positive H (Negative) Ethyl Alcohol mg/dL Discharge Plan Departure Patient Disposition: Home, Self-Care Clinical Impression: First time seizure Discharge Date/Time: 02/12/18 17:50 Interventions: ED Discharge Assessment Last Done: 02/12/18 17:49 Instructions: DI for Seizure Disorder -- Adult Activity Restrictions/Additional Instructions: It appears most likely today that you had a seizure. Your test did not find evidence of any other new problem such as a stroke or heart attack. There was not a significant amount of alcohol or other drugs in your system. You should see your PCP in the next few days for a follow-up and a referral to a neurologist to have further testing as we talked about. You should not drive until the neurologist says it is safe for you. You should return to the closest emergency room if you have any new symptoms or if any recurrent seizure activity Prescriptions: No Action atorvastatin [Lipitor] 80 mg Tablet 80 mg PO DAILY RF: 0 metoprolol succinate 50 mg Tablet Extended Release 24 Hr 50 mg PO DAILY RF: 0 levothyroxine 50 mcg Tablet 50 mcg PO DAILY RF: 0 losartan-hydrochlorothiazide 50-12.5 mg Tablet 1 tab PO DAILY RF: 0 sitagliptin [Januvia] 100 mg Tablet 100 mg PO DAILY RF: 0 dapagliflozin-metformin [Xigduo XR] 5-1,000 mg Tablet, Ir - Er, Biphasic 24hr 1 tab PO DAILY RF: 0 Referrals: Silverio Romano MD [Non-Staff] - <Prosper Garcia MD - Last Filed: 03/15/18 06:50> Cosign ED Attending Cosignature Attestation: The PA/CASE WORK AIDE functioned independently for the care of this pt, I was available, but not asked to participate in care. I am unable to determine appropriateness of management without personally examining the pt.
[2018-02-12 14:00] LABS: INR 1.1 (0.9-1.3); Prothrombin Time 11.7 SECONDS (10.1-12.7)
[2018-02-12 14:01] LABS: Add Manual Diff / Slide Review NO; Basophils Percent Auto 0.6 % (0-2); Eosinophils Percent Auto 1.9 % (2-4); Hematocrit 47.8 % (41-53); Hemoglobin 16.5 g/dL (13.5-17.5); Lymphocytes Percent Auto 18.8 % (25-40); Mean Corpuscular HGB Conc 34.5 % (30-36); Mean Corpuscular Hemoglobin 31.6 PG (26-34); Mean Corpuscular Volume 91.7 fL (80-100); Monocytes Percent Auto 15.8 % (3-14); Neutrophils Absolute Auto 7200 /uL (3000-5900); Neutrophils Percent Auto 62.9 % (50-75); Platelet Count 181 X10^3/uL (150-400); Red Blood Cell Count 5.22 X10^6/uL (4.5-5.9); Red Cell Distribution Width 14.4 % (11.6-14.8); White Blood Cell Count 11.4 X10^3/uL (4.5-11.0)
[2018-02-12 14:03] LABS: D Dimer 313 ng/mL (<230)
[2018-02-12 14:08] LABS: Alanine Aminotransferase 54 IU/L (21-72); Albumin 4.3 g/dL (3.5-5.0); Albumin Globulin Ratio 1.2 (1.0-2.8); Alkaline Phosphatase 70 U/L (38-126); Aspartate Aminotransferase 42 IU/L (17-59); BUN Creatinine Ratio 17.8 (6-22); Blood Urea Nitrogen 16 mg/dL (9-20); Calcium 9.4 mg/dL (8.4-10.2); Carbon Dioxide 28 mmol/L (22-32); Chloride 97 mmol/L (98-107); Creatine Kinase 119 U/L (55-170); Estimated Glomerular Filt Rate > 60.0 mL/min (>60); Ethanol (ETOH) < 10 mg/dL; Globulin 3.7 g/dL (1.7-4.1); Glucose 173 mg/dL (80-110); HEMOLYSIS 29 (0-50); Magnesium 1.6 mg/dL (1.6-2.3); Potassium 3.7 mmol/L (3.4-5.1); Sodium 139 mmol/L (137-145)
--- NOTE | 2018-02-12 14:08 | PC.NURSE ---
witnessed shaking with +LOC, pt was relaxed in a chair drinking beer, smoking marijuana, denies fall/injury/cp/soa/nausea/dizziness/recent illness or other sx, alert/oriented immediately following event, neuro exam unremarkable, placed in high vis room with sz precautions, denies sz history
[2018-02-12 14:17] VITALS: BP 115/72; PULSE 79; RESP 16; O2SAT 99
[2018-02-12] MEDS: SODIUM CHLORIDE 0.9% 1,000 ML 1000 ML IV (14:19)
[2018-02-12 14:22] LABS: CKMB % Relative Index 1.7 % (1.5-5.0); Creatine Kinase MB 1.99 ng/mL (<2.37)
--- NOTE | 2018-02-12 14:22 | DI.CT.S_ITS ---
PROCEDURE: CT ANGIO CHEST PE PROTOCOL INDICATIONS: syncope, elevated d dimer TECHNIQUE: After the administration of intravenous contrast, 2 mm thick sections acquired from the pulmonary apices to the posterior costophrenic angles. 3-dimensional maximum intensity projection (MIP) coronal and sagittal reformats were then acquired through the thorax. For radiation dose reduction, the following was used: automated exposure control, adjustment of mA and/or kV according to patient size. COMPARISON: [facility], CR, XR CHEST 1V, 02/12/2018, 13:33. FINDINGS: Image quality: Excellent. Pulmonary arteries: Pulmonary arteries are normal in size, and demonstrate no intraluminal filling defects to suggest central pulmonary embolism. Lungs and pleura: There is mild dependent atelectasis bilaterally. Within the left lower lobe, there is a small bony nodule measuring up to 4 mm on series 5 image 48. No pleural effusions or pneumothorax. Central and peripheral airways are patent. Mediastinum: Postsurgical changes are demonstrated in the mediastinum compatible with prior CABG. Heart size is normal, without pericardial effusion. No mediastinal or hilar adenopathy. Thoracic aorta is normal in caliber and enhancement. Esophagus is normal in caliber, with a small hiatal hernia. Bones and chest wall: No suspicious bony lesions. Ribs and thoracic spine appear intact throughout. Thyroid gland is heterogeneous in appearance with suggestion of a small right nodule. No axillary or supraclavicular adenopathy. Abdomen: Visualized upper abdominal solid organs appear normal in the early arterial phase of enhancement. IMPRESSION: 1. No evidence of pulmonary embolism. 2. Small 4 mm left lower lobe pulmonary nodule. If patient is at high risk for malignancy, a followup CT may be performed in 12 months to demonstrate stability. 3. Heterogeneous appearance of the thyroid. Further evaluation may be obtained with ultrasound if clinically indicated. Dictated by: Woodrow Castro M.D. on 02/12/2018 at 14:50 Approved by: Woodrow Castro M.D. on 02/12/2018 at 14:55
[2018-02-12 14:23] LABS: Troponin I < 0.012 ng/mL (0.01-0.034)
[2018-02-12 16:06] VITALS: BP 120/66; PULSE 73; RESP 16; O2SAT 97
[2018-02-12 16:23] LABS: Prolactin 88.7 ng/mL (3.7-17.9)
[2018-02-12 16:58] LABS: Bacteria Urine None Seen; WBC Urine None Seen (0-5/HPF)
[2018-02-12 17:14] LABS: Urine Amphetamines Negative (Negative); Urine Barbiturates Negative (Negative); Urine Benzodiazepines Negative (Negative); Urine Cocaine Negative (Negative); Urine MDMA Negative (Negative); Urine Methadone Negative (Negative); Urine Methamphetamines Negative (Negative); Urine Morphine/Opi cutoff 2000 Negative (Negative); Urine Oxycodone Negative (Negative); Urine Phencyclidine Negative (Negative); Urine Tetrahydrocannabinol Positive (Negative); Urine Tricyclic Antidepressant Negative (Negative)
[2018-02-12 17:21] LABS: Appearance Urine UA CLEAR; Bilirubin Urine UA NEGATIVE (NEGATIVE); Color Urine UA YELLOW; Glucose Urine UA 2+ g/dL (Normal); Ketones Urine UA NEGATIVE (NEGATIVE); Leukocyte Esterase Urine UA NEGATIVE (NEGATIVE); Nitrite Urine UA Negative (Negative); Occult Blood Urine UA NEGATIVE (Negative); Protein Urine UA NEGATIVE (Negative); Urobilinogen Urine UA 0.2 E.U./dL (0.2)
[2018-02-12 17:31] LABS: RBC Urine 1-5/HPF (0-5/HPF)
[2018-02-12 17:43] VITALS: BP 118/89; PULSE 84; RESP 16; O2SAT 100
== END 2018-02-12 17:50 | disposition home or self-care (01) ==
PROVIDERS: Emergency Provider Internal Medicine
DX: R56.9 Unspecified convulsions (principal)
CPT/HCPCS: 70450; 71045; 71275; 80053; 80305; 80320; 81001; 82550; 82553; 83735; 84146; 84484; 85025; 85379; 85610; 93005; 96360; 99283; 99285; Q9967

== ENCOUNTER 2020-03-18 12:08 | Emergency (ER) | payer OTHER, BC, SELFPAY ==
[2020-03-18 12:10] VITALS: BP 130/99; PULSE 84; RESP 18; TEMP 36.6; O2SAT 98
--- NOTE | 2020-03-18 12:22 | DI.CT.S_ITS ---
PROCEDURE: CT LUMBAR SPINE WO CON INDICATIONS: Sent from [facility] for L1 normality on x-ray TECHNIQUE: Noncontrast 3 mm thick sections acquired from the T12 level to the sacrum. Sagittal and coronal reformats were constructed. For radiation dose reduction, the following was used: automated exposure control. COMPARISON: None. FINDINGS: Image quality: Excellent. Bones: There is normal bony alignment. There is an acute vertebral body compression fracture involving L1, with the 23% middle third vertebral body height reduction when compared to the level immediately below, without evidence of posttraumatic subluxation or displacement of bone fragments into the spinal canal.. No suspicious lytic or blastic bony lesions. Central spinal caliber is of normal overall caliber. No pars defects. Soft tissues: No retroperitoneal masses or hematomas. Visualized aorta is normal in caliber. IMPRESSION: Acute or subacute L1 23% height reduction and middle third compression fracture predominantly involving the upper endplate of L1, without spinal canal compromise. Dictated by: Silverio Anne M.D. on 03/18/2020 at 12:59 Approved by: Silverio Anne M.D. on 03/18/2020 at 13:00
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
[2020-03-18 12:47] VITALS: PULSE 82; O2SAT 95
[2020-03-18 13:00] VITALS: PULSE 80; O2SAT 94
[2020-03-18 13:27] VITALS: BP 153/77; PULSE 74; O2SAT 95
== END 2020-03-18 13:32 | disposition home or self-care (01) ==
PROVIDERS: Emergency Provider Nurse Practitioner
DX: S32.010A Wedge compression fracture of first lumbar vertebra, initial encounter for closed fracture (principal)
CPT/HCPCS: 72131; 81003; 99283; 99284

== ENCOUNTER → 2021-12-12 13:17 | Outpatient (CLI) | payer MEDICARE, BC, SELFPAY ==
--- NOTE | 2021-12-12 13:20 | DI.RAD.S_ITS ---
PROCEDURE: XR WRIST RT MIN 3V INDICATIONS: fall, R elbow/wrist pain TECHNIQUE: 4 views of the wrist were acquired. COMPARISON: None. FINDINGS: Bones: No fractures or dislocations. No suspicious bony lesions. Scaphoid view: Unremarkable Soft tissues: No suspicious soft tissue calcifications. IMPRESSION: Unremarkable right wrist radiographs Approved by: Margarito Phillips M.D. on 12/12/2021 at 13:22
--- NOTE | 2021-12-12 13:20 | DI.RAD.S_ITS ---
PROCEDURE: XR FOREARM RT 2V INDICATIONS: fall, R elbow/wrist pain TECHNIQUE: 2 views of the forearm were acquired. COMPARISON: None. FINDINGS: Bones: Probable impacted fracture of the radial neck. Remainder the forearm intact. Soft tissues: No suspicious soft tissue calcifications or masses. IMPRESSION: Probable impacted fracture radial neck. Remainder of the forearm intact. Approved by: Margarito Phillips M.D. on 12/12/2021 at 13:21
--- NOTE | 2021-12-12 13:20 | DI.RAD.S_ITS ---
PROCEDURE: XR ELBOW RT MIN 3V INDICATIONS: fall, R elbow/wrist pain TECHNIQUE: 3 views of the elbow were acquired. COMPARISON: None. FINDINGS: Bones: Cortical regularity involving the radial neck may reflect an impacted fracture. Articular surface is preserved. No joint effusion present. Soft tissues: No elbow joint effusion. No suspicious soft tissue calcifications. IMPRESSION: Possible radial neck impacted fracture. Consider follow-up CT or follow-up radiographs in 10-15 days to assess for healing Approved by: Margarito Phillips M.D. on 12/12/2021 at 13:14
== END ==
PROVIDERS: Referring Provider Physician Assistant; Visit Provider Physician Assistant
DX: S49.91XA Unspecified injury of right shoulder and upper arm, initial encounter (principal); W19.XXXA Unspecified fall, initial encounter
CPT/HCPCS: 73080; 73090; 73110

== ENCOUNTER → 2024-01-19 13:19 | Outpatient (CLI) | payer OTHER, SELFPAY ==
--- NOTE | 2024-01-19 13:22 | DI.MRI.S_ITS ---
PROCEDURE: MR LUMBAR SPINE WO CON INDICATIONS: Nicotine dependence, chewing tobacco/radiculopathy TECHNIQUE: Noncontrast sagittal T1 spin echo and T2 fast echo, sagittal STIR, and T2 fast spin echo through the lumbar spine. In cases with scoliosis, additional coronal T2 fast spin echo may be performed. COMPARISON: [facility], CT, CT LUMBAR SPINE WO CON, 03/18/2020, 12:34. FINDINGS: Image quality: Diagnostic Alignment and Curvature: There is normal bony alignment. Bone Marrow: Marrow is of normal overall signal. No acute vertebral body compression fractures. There is a remote fracture seen of L1, without acute features. There is 40-50% loss of height centrally, with an associated Schmorl's node. Spinal Cord: Conus medullaris terminates at the L1 level. Visualized cord demonstrates normal signal and size. Paraspinous Soft Tissues: No paravertebral masses. T12-L1: No significant abnormality is seen. L1-L2: The disc height and disk signal are relatively well-preserved. Mild generalized disc bulge is seen. Mild facet joint hypertrophy is seen. Mild bilateral neural foraminal narrowing is seen. Mild central canal narrowing is seen. L2-L3: The disc height and disk signal are relatively well-preserved. Mild generalized disc bulge is seen. Mild facet joint hypertrophy is seen. Mild bilateral neural foraminal narrowing is seen. Mild central canal narrowing is seen. L3-L4: The disc height is well-preserved. Loss of disc signal is seen at this level. Moderate generalized disc bulge is seen. There is a superimposed central disc protrusion. Mild facet joint hypertrophy is seen. Moderate bilateral neural foraminal narrowing is seen. Moderate central canal narrowing is seen. L4-L5: The disc height is well-preserved. Loss of disc signal is seen at this level. Moderate generalized disc bulge is seen. There is a superimposed central disc protrusion. Moderate facet joint hypertrophy is seen. There is at least moderate bilateral neural foraminal narrowing seen. There is a degree of compression seen upon the exiting nerve roots. Moderate central canal narrowing is seen. L5-S1: The disc height is well-preserved. Loss of disc signal is seen at this level. Moderate generalized disc bulge is seen. There is a superimposed central disc protrusion. Moderate facet joint hypertrophy is seen. Mild to moderate bilateral neural foraminal narrowing can be seen. Moderate central canal narrowing is seen. IMPRESSION: Multiple levels of lumbar spine degenerative change can be seen, which are worst inferiorly. There is a remote L1 compression deformity, without acute features. This compression deformity has progressed compared to 2020. Dictated by: El Guallpa M.D. on 01/19/2024 at 17:13 Approved by: El Guallpa M.D. on 01/19/2024 at 17:18
--- NOTE | 2024-01-19 13:23 | DI.CT.S_ITS ---
PROCEDURE: CT CHEST WO CON INDICATIONS: Nicotine dependence, chewing tobacco/radiculopathy TECHNIQUE: Noncontrast 5 mm thick sections acquired from the pulmonary apices to the posterior costophrenic angles. 1 mm lung window, 5 mm thick coronal and sagittal and 7 mm axial MIP reformats were then acquired. For radiation dose reduction, the following was used: automated exposure control, adjustment of mA and/or kV according to patient size. COMPARISON: None. FINDINGS: Image quality: Diagnostic. Lower Neck: No enlarged lymph nodes. Thyroid: No thyroid nodules which require sonographic follow up, per consensus guidelines. Axillae: No enlarged lymph nodes. Chest Wall: Gynecomastia. Bones: Diffuse idiopathic skeletal hyperostosis. Lungs and Pleura: No pneumothorax or pleural effusions. Mild peripheral reticulation, without significant bronchiectasis. Diffuse bronchial thickening. Trace centrilobular emphysema. Heart: Heart size is normal. No pericardial effusion. Three-vessel coronary calcifications, status post CABG. Thoracic Vessels: The aorta and pulmonary arteries demonstrate normal size. Mediastinum and Jennifer: No enlarged lymph nodes. Esophagus: No wall thickening. No hiatal hernia. Upper Abdomen: Extensive vascular calcifications. IMPRESSION: Diffuse bronchial thickening, suggestive of infectious or inflammatory bronchitis. Mild peripheral reticulation, without honeycombing. Findings may indicate early interstitial lung disease, CT features most consistent with non IPF diagnosis. Consider pulmonology referral. Dictated by: Carson Mcintosh M.D. on 01/19/2024 at 14:14 Approved by: Carson Mcintosh M.D. on 01/19/2024 at 14:17
== END ==
PROVIDERS: Referring Provider Nurse Practitioner Family; Visit Provider Nurse Practitioner Family
DX: M47.26 Other spondylosis with radiculopathy, lumbar region (principal); M47.27 Other spondylosis with radiculopathy, lumbosacral region; M43.8X6 Other specified deforming dorsopathies, lumbar region; I25.10 Atherosclerotic heart disease of native coronary artery without angina pectoris; F17.221 Nicotine dependence, chewing tobacco, in remission; N62 Hypertrophy of breast; Z95.1 Presence of aortocoronary bypass graft
CPT/HCPCS: 71250; 72148

== ENCOUNTER → 2024-04-04 11:57 | Outpatient (CLI) | payer OTHER, SELFPAY | PROVIDERS: Referring Provider Internal Medicine; Visit Provider Internal Medicine | DX: R05.3 Chronic cough (principal); Z87.891 Personal history of nicotine dependence; R94.2 Abnormal results of pulmonary function studies | CPT/HCPCS: 94060; 94726; 94729 ==